=== PATIENT | female | born 1990 | race Caucasian/White ===

== ENCOUNTER 2020-09-15 05:19 | Inpatient (IN) ==
[2020-09-15] MEDS ORDERED: OXYTOCIN 30 UNITS/500 ML BAG IV PRN ×2 (12:54→15:39)
[2020-09-15 13:31] LABS: Hemoglobin 10.5 g/dL (12.0-16.0); Mean Corpuscular Hemoglobin 30.9 pg (25-34); Mean Corpuscular Hgb Conc 33.9 g/dL (32-36); Mean Corpuscular Volume 91.2 fL (80-100); Mean Platelet Volume 9.9 fL (7.4-10.4); Platelet Count 278 K/uL (130-400); RDW Coefficient of Variation 13.6 % (11.5-14.5); RDW Standard Deviation 44.6 fL (36.4-46.3); White Blood Count 7.86 K/uL (4.8-10.8)
[2020-09-15] MEDS: LACTATED RINGER'S 1,000 ML IV PRN ×2 (16:25→20:23)
[2020-09-15] MEDS ORDERED: ePHEDrine sulfate 50 MG/ML AMP ONE (19:58)
[2020-09-15] MEDS ORDERED: BUPIVACAINE 0.25% 30 ML VIAL ONE (19:58)
[2020-09-15] MEDS ORDERED: SODIUM CHLORIDE 0.9% INJ 10 ML VIAL ONE (19:58)
[2020-09-15] MEDS ORDERED: fentaNYL citrate 100 MCG/2 ML VIAL ONE (19:58)
[2020-09-15] MEDS ORDERED: fentaNYL 2MCG/ML ROPIVACAINE 1.25MG/ML 100 ML BAG EPI ONE (19:59)
--- NOTE | 2020-09-15 20:19 | Anesthesiology Consultation ---
Date of Service September 15, 2020 Assessment & Plan Chart Review Chart Review: Acceptable Risk for Surgery and Patient NOT seen in Pre Admission Testing Consults Requested none ASA ASA2 Proposed Anesthesia Anesthesia Type: Labor Epidural and CSE Risk / Benefits Reviewed With: PT / POA / Parent / Guardian, Accepts Plan and Informed Consent Obtained Additional Comments: covid test negative History Height/Weight Height: 4 ft 11 in Weight: 59.06 kg Allergies Allergy/AdvReac Type Severity Reaction Status Date / Time No Known Allergies Allergy Verified 09/15/20 05:57 Medications Home Medications Medication Instructions Recorded Confirmed Last Taken vit no.[id number] 1 tab PO DAILY 09/15/20 09/15/20 09/08/20 21:00 [ Vitamin] Active Medications Generic Name Dose Route Start Last Admin Trade Name Freq PRN Reason Stop Dose Admin Lactated Ringer's 1,000 mls @ 125 mls/hr 09/15/20 12:54 09/15/20 19:56 Lr IV 09/17/20 12:53 999 mls/hr .Q8H PRN Infusion L&D Protocol Protocol Oxytocin 30 units in 500 mls @ 10 mls/hr 09/15/20 15:39 09/15/20 19:00 Pitocin IV 09/17/20 15:38 0.6 units/hr .Q24H PRN 10 mls/hr Labor Induction/Augmentation Titration Protocol 0.6 UNITS/HR NPO Date Last Intake of Fluids: 09/15/20 Time Last Intake of Fluids: 18:00 Date Last Intake of Solids: 09/15/20 Time Last Intake of Solids: 12:00 Exercise / Class Metabolic Activity II 4-5 Yardwork/Stairs/Walk up hill Past Anesthesia History No Hx of Anesthesia Complications and No Family Hx of Anesthesia Complications History of PONV No Hx of PONV and No Hx of Motion Sickness Social History Smoking Status: Light tobacco smoker tobacco type: cigarettes Smoking cigarettes per day: 3 Do You Dip or Chew Tobacco: No Hx Alcohol Use: No Hx Substance Use: No substance use type: does not use Physical Exam Vital Signs Last Vital Signs Temp 37.2 C 09/15/20 18:57 Pulse 74 09/15/20 20:11 Resp 18 09/15/20 18:57 BP 128/77 09/15/20 20:06 Pulse Ox 99 09/15/20 20:11 Constitutional + thin ENMT Mouth: no dentition abnormality Thyromental Distance: < 3.5 Finger Breadths Mallampati Class: II Neck normal visual inspection and trachea midline; neck extension not limited Respiratory normal respiratory effort Auscultation: lungs clear to auscultation bilaterally Cardiovascular Rate/Rhythm: regular rate and regular rhythm Heart Sounds: no murmur Vessels: no carotid bruit Musculoskeletal Spine: lumbar spine normal to inspection; normal cervical ROM Neurologic moves all extremities Motor/Sensory: no sensory deficit Psychiatric Orientation: alert and oriented x 3 Testing Laboratory Results 09/15/20 13:15
[2020-09-15] MEDS ORDERED: NALOXONE HCL 1 MG in SODIUM CHLORIDE 0.9% 1000ML 1,000 ML IV PRN (20:40)
[2020-09-15] MEDS ORDERED: diphenhydrAMINE 50 MG/ML VIAL IV PRN (20:40)
[2020-09-15] MEDS ORDERED: NALOXONE HCL 0.4 MG/1 ML VIAL/CARP IV PRN (20:40)
[2020-09-15] MEDS ORDERED: ePHEDrine sulfate 50 MG/ML AMP IV PRN (20:40)
[2020-09-15] MEDS ORDERED: ONDANSETRON INJ 2 MG/ML 2 ML VIAL IV PRN (20:40)
[2020-09-15] MEDS ORDERED: PROMETHAZINE HCL 25 MG in SODIUM CHLORIDE 0.9% 50 ML IV PRN (20:40)
[2020-09-15] MEDS ORDERED: fentaNYL 2MCG/ML ROPIVACAINE 1.25MG/ML 100 ML BAG EPI PRN (20:40)
[2020-09-16] MEDS ORDERED: LIDOCAINE HCL 1% 20 ML VIAL ONE (00:05)
[2020-09-16] MEDS ORDERED: METHYLERGONOVINE MALEATE 0.2 MG/ML AMP ONE (00:07)
[2020-09-16] MEDS ORDERED: ACETAMINOPHEN W/CODEINE #3 1 TAB PO PRN (00:25)
[2020-09-16] MEDS ORDERED: METHYLERGONOVINE MALEATE 0.2 MG/ML AMP IM ONE (00:25)
[2020-09-16] MEDS ORDERED: SUPERCREAM 0.870% 15 GM JAR EXT PRN (00:25)
[2020-09-16] MEDS ORDERED: bisacodyL 10 MG SUPP PR PRN (00:25)
[2020-09-16] MEDS ORDERED: HYDROCORTISONE ACETATE 25 MG SUPP PR PRN (00:25)
[2020-09-16] MEDS ORDERED: OXYTOCIN 30 UNITS/500 ML BAG IV PRN (00:25)
[2020-09-16] MEDS ORDERED: BENZOCAINE 20% AER SPR 82.5 GM CAN EXT PRN (00:25)
[2020-09-16] MEDS ORDERED: oxyCODONE/ACETAMINOPHEN 5mg/325mg TAB PO PRN (00:25)
[2020-09-16] MEDS ORDERED: ACETAMINOPHEN 325 MG TAB PO PRN (00:25)
[2020-09-16] MEDS ORDERED: DIPHTHERIA/TETANUS/PERTUSSIS 0.5 ML SYR/VIAL IM ONE (00:25)
--- NOTE | 2020-09-16 00:48 | Delivery Summary ---
DATE OF OPERATION: 09/16/2020 DELIVERY NOTE She is 4, para 4. Blood type is A negative, group B strep negative. She called about 4 in the morning on 09/15/2020. States she has been timing her contractions for several hours, felt she was in labor. Last time I had seen her in the office she was 1 cm. She came to the hospital. We walked around for a while. I came in the morning and checked her, she was 2. I watched her and came back about noon, she was about 3, I admitted her. Eventually after office hours I came in and started her on IV Pitocin. Soon after that, she requested and received epidural anesthesia, obtained good pain relief. When she was about 5-6 cm, I ruptured the membrane surgically. Fluid was clear. She then had a relatively fast labor and head came down and eventually she delivered a live infant via direct OP position over an intact perineum. Infant was delivered without difficulty. Cord was allowed to clamp for a minute. It was then clamped and cut. Cord blood was taken. There was a clitoral laceration just to the right of the midline, which bled quite profusely and this was sewn with 5 interrupted 3-0 chromic gut sutures. Then with IV Pitocin running and Methergine given, the placenta was removed intact. Inspection of the perineum revealed a very superficial laceration of the introitus at about 7 o'clock. This was also repaired with a running 3-0 chromic gut suture. Following this, hemostasis was good. Estimated blood loss was 400 mL. Apgars were deferred to the nurses. I attest to the content of the Intraoperative Record and any orders documented therein. Any exception s are noted below.
--- NOTE | 2020-09-16 06:44 | Anesthesia Procedure Note ---
Date of Service September 16, 2020 Anesthesia Post Epidural Note Vital Signs Vital Signs: Temp Pulse Resp BP Pulse Ox 37.2 C 59 L 20 120/75 95 09/16/20 03:00 09/16/20 03:00 09/16/20 03:00 09/16/20 03:00 09/16/20 03:00 Notes Mental Status: alert / awake / arousable Nausea / Vomiting: adequately controlled Pain: adequately controlled Airway Patency, RR, SpO2: stable & adequate BP & HR: stable & adequate Hydration State: stable & adequate Neuraxial Anesthesia: was administered and sensory block is resolving Anesthetic Complications: no major complications apparent Epidural: Removed without complications and With tip intact
[2020-09-16] MEDS: IBUPROFEN 600 MG TAB PO PRN ×2 (06:46→16:47)
--- NOTE | 2020-09-16 09:34 | Obstetrical Progress Note ---
Date of Service September 16, 2020 Assessment & Plan Admission and Anticipated Discharge Date Admission Date: September 15, 2020 Physical Exam Physical Exam: abdomen soft and non tender no calf tenderness ambulating well vaginal bleeding scant hgb 10.5 Results & Data ([facility]) Vital Signs (Past 12 Hours) Vital Signs Temp Pulse Pulse Resp BP BP Pulse Ox 09/16/20 03:00 37.2 C 59 L 20 120/75 95 09/16/20 02:11 37.4 C 65 18 109/59 L 09/16/20 01:59 75 118/60 09/16/20 01:47 75 18 114/57 L 09/16/20 01:29 86 117/56 L 09/16/20 01:14 64 18 121/56 L 09/16/20 01:00 71 18 117/59 L 09/16/20 00:44 68 18 116/52 L 09/16/20 00:40 69 118/58 L 09/16/20 00:35 90 185/129 H 09/16/20 00:29 18 09/16/20 00:21 77 98 09/16/20 00:16 91 H 97 09/16/20 00:14 90 18 117/60 09/16/20 00:11 82 98 09/16/20 00:06 99 H 98 09/16/20 00:01 95 H 98 09/15/20 23:56 87 99 09/15/20 23:55 96 H 83 L 09/15/20 23:51 71 99 09/15/20 23:46 71 98 09/15/20 23:45 62 103/55 L 09/15/20 23:41 78 99 09/15/20 23:36 77 98 09/15/20 23:31 76 99 09/15/20 23:29 76 102/58 L 09/15/20 23:26 69 97 09/15/20 23:21 78 97 09/15/20 23:17 57 L 93 09/15/20 23:16 58 L 96 09/15/20 23:15 55 L 106/52 L 09/15/20 23:11 68 99 09/15/20 23:06 66 99 09/15/20 23:01 56 L 94 09/15/20 23:00 53 L 96/51 L 09/15/20 22:56 58 L 94 09/15/20 22:51 60 95 09/15/20 22:47 61 106/56 L 09/15/20 22:46 62 98 09/15/20 22:41 79 100 09/15/20 22:36 58 L 97 09/15/20 22:31 57 L 97 09/15/20 22:29 56 L 109/61 09/15/20 22:26 55 L 97 09/15/20 22:21 55 L 98 09/15/20 22:20 61 94 09/15/20 22:16 53 L 95 09/15/20 22:15 53 L 103/58 L 09/15/20 22:13 52 L 94 09/15/20 22:11 55 L 94 09/15/20 22:07 54 L 94 09/15/20 22:06 57 L 94 09/15/20 22:01 56 L 93 09/15/20 22:00 36.9 C 55 L 105/59 L 09/15/20 21:56 54 L 96 09/15/20 21:55 54 L 94 09/15/20 21:51 57 L 96 09/15/20 21:49 57 L 94 09/15/20 21:46 54 L 100/59 L 93 09/15/20 21:43 55 L 94 09/15/20 21:41 58 L 96 09/15/20 21:36 62 94
[2020-09-16] MEDS: DOCUSATE SODIUM 100 MG CAP PO SCH ×2 (10:07→21:30)
[2020-09-16] MEDS: PRENATAL VITAMIN 1 TAB PO SCH (10:07)
[2020-09-17 06:44] LABS: Hemoglobin 8.7 g/dL (12.0-16.0); Mean Corpuscular Hemoglobin 30.7 pg (25-34); Mean Corpuscular Hgb Conc 33.5 g/dL (32-36); Mean Corpuscular Volume 91.9 fL (80-100); Mean Platelet Volume 9.8 fL (7.4-10.4); Platelet Count 243 K/uL (130-400); RDW Coefficient of Variation 13.6 % (11.5-14.5); RDW Standard Deviation 45.7 fL (36.4-46.3); Red Blood Count 2.83 M/uL (4.2-5.4); White Blood Count 10.16 K/uL (4.8-10.8)
[2020-09-17] MEDS: DOCUSATE SODIUM 100 MG CAP PO SCH (08:39)
[2020-09-17] MEDS: IBUPROFEN 600 MG TAB PO PRN (08:39)
[2020-09-17] MEDS: PRENATAL VITAMIN 1 TAB PO SCH (08:39)
--- NOTE | 2020-09-17 11:25 | Obstetrical Progress Note ---
Date of Service September 17, 2020 Assessment & Plan Admission and Anticipated Discharge Date Admission Date: September 15, 2020 Physical Exam Physical Exam: abdomen soft and non tender no calf tenderness ambulating well vaginal bleeding scant hgb 8.7 Results & Data ([facility]) Vital Signs (Past 12 Hours) Vital Signs Temp Pulse Resp BP Pulse Ox 09/17/20 07:00 36.5 C 67 16 107/70 09/17/20 04:00 36.5 C 62 16 108/90 96
[2020-09-17] MEDS ORDERED: bisacodyL 5 MG TABEC PO SCH (20:00)
== END 2020-09-17 13:10 | disposition home or self-care (01) | DRG 807 ==
LOC: OPB 05:19 → 4S1 05:23 → 4S2 09-16 02:30